=== PATIENT | male | born 1985 | race Hispanic/Latino ===

== ENCOUNTER 2019-01-12 13:24 | Emergency (ER) | payer OTHER, BC, SELFPAY ==
[2019-01-12 13:25] VITALS: BP 133/90; PULSE 74; RESP 18; TEMP 36.6; O2SAT 100; BMI 28.8
--- NOTE | 2019-01-12 15:35 | ED.VISSUMM ---
- ER Visit Summary Date of Service: 01/12/19 Chief Complaint: Finger laceration History of Present Illness: The patient is a 33 M who presents to the emergency department following a right thumb laceration while at work. 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 Tetanus is up-to-date. Physical Examination: Afebrile vital signs stable The volar surface of the right thumb demonstrates a 3.5 cm linear laceration is full-thickness. There is no significant contamination noted. Neurovascular intact. Emergency Department Course and Treatment: Patient underwent digital block using 1% lidocaine. Wound was washed with Shur-Clens and explored. After adequate anesthesia a total of 7 simple interrupted Ethilon 4-0 sutures were placed. Wound care discussed with patient. Impression: 1. 3.5 cm right thumb laceration with repair This note was generated with [employer] dictation software. It may contain incorrect words, spelling, and punctuation that were not noted in review of the chart prior to signing ED Disposition - Plan for ED Patient: Disposition: Home or Assisted Living Instructions: ED Laceration Hand Referrals: [facility] [GROUP OF PHYSICIANS] - 10 Day for suture removal
--- NOTE | 2019-01-12 16:15 | ED.RN ---
PT WORKMANS COMP ALREADY COMPLETED. PT HAS COPY OF ALL PAPERWORK WITH HIM
[2019-01-12 16:33] VITALS: BP 122/75; PULSE 70; RESP 16; O2SAT 98
== END 2019-01-12 16:35 | disposition home or self-care (01) ==
PROVIDERS: Emergency Provider Emergency Medicine
DX: S61.011A Laceration without foreign body of right thumb without damage to nail, initial encounter (principal); W26.0XXA Contact with knife, initial encounter; Y93.89 Activity, other specified; Y92.9 Unspecified place or not applicable; Y99.0 Civilian activity done for income or pay
CPT/HCPCS: 12002; 99283